=== PATIENT | female | born 1960 | race Caucasian/White ===

== ENCOUNTER 2018-09-25 15:37 | Inpatient (IN) | payer OTHER ==
[2018-09-25] MEDS ORDERED: MORPHINE SULFATE 4 MG/ML SYRINGE IVP STA ×3 (16:02→19:28)
[2018-09-25] MEDS ORDERED: ONDANSETRON 4 MG/2 ML VIAL IVP STA (16:05)
[2018-09-25] MEDS ORDERED: SODIUM CHLORIDE 0.9% 1,000 ML IV STA (16:05)
--- NOTE | 2018-09-25 16:05 | ED ---
General Adult HPI - General Chief complaint: Fall Stated complaint: Leg injury Time Seen by Provider: 09/25/18 15:42 Source: patient Mode of arrival: EMS Limitations: no limitations - History of Present Illness Initial comments: Dictation was produced using [employer] dictation software. please excuse any grammatical, word or spelling errors. Chief Complaint: 57-year-old female past medical history of hypertension and diabetes presents with right lower extremity injury History of Present Illness: Patient is a 57-year-old female. She has no significant comorbidities. 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 She then reported that she fell causing her to go to the ground. Patient tried to stand up however was not able to do so given that there was significant pain and deformity to the right lower extremity. EMS was called patient is transferred to the hospital. Prior to arrival patient was given fentanyl by EMS. She was placed in a EMS type immobilizer. The ROS documented in this emergency department record has been reviewed and confirmed by me. Those systems with pertinent positive or negative responses have been documented in the HPI. All other systems are other negative and/or noncontributory. PHYSICAL EXAM: General Impression: Alert and oriented x3, not in acute distress HEENT: Normocephalic atraumatic, extra-ocular movements intact, pupils equal and reactive to light bilaterally, mucous membranes moist. Cardiovascular: Heart regular rate and rhythm, S1&S2 audible, no murmurs, rubs or gallops Chest: Lungs clear to auscultation bilaterally, no rhonchi, no wheeze, no rales Abdomen: Bowel sounds present, abdomen soft, non-tender, non-distended, no organomegaly Musculoskeletal: Pulses present and equal in all extremities, no peripheral edema Right lower extremity: Gross deformity to the mid tibial area. Good DP pulses. Good motor function of the toes Motor: no focal deficits noted Neurological: CN II-XII grossly intact, no focal motor or sensory deficits noted Skin: Intact with no visualized rashes Psych: Normal affect and mood ED course: 57-year-old female presents with right lower extremity injury. Vital signs upon arrival shows heart rate of 59, worse vital signs within acceptable limits. Patient does have significant gross deformity to the right lower extremity. Tori x-ray was obtained. Right ankle appears uninjured. X-ray of the tibia and fibula shows comminuted fracture of the distal tibia, lateral malleolus and medial malleolus. Discussed patient case with Dr. Hand who requests CT imaging of that lower extremity. CTs were obtained showing comminuted displaced fracture distal diaphysis of the right tibia. There is also comminuted minimally displaced lateral malleolus fracture and nondisplaced transverse fracture of the medial malleolus. Patient was placed in a splint. Conscious sedation was used to reduce the fracture. Postreduction x-rays are acceptable. Patient be admitted to Dr. Hadn for likely operative intervention tomorrow. He requests internal medicine be consulted. Labs are unremarkable. Pending EKG chest x-ray for preoperative evaluation. - Related Data Home Medications Medication Instructions Recorded Confirmed Atorvastatin Calcium [Lipitor] 10 mg PO DAILY 09/25/18 09/25/18 Glimepiride [Amaryl] 2 mg PO AC-BID 09/25/18 09/25/18 Lisinopril-Hctz 20-25 mg 1 tab PO DAILY 09/25/18 09/25/18 [Zestoretic 20-25] Metoprolol Succinate (ER) [Toprol 25 mg PO DAILY 09/25/18 09/25/18 Xl] metFORMIN HCL [metFORMIN HCL ER] 750 mg PO AC-BID 09/25/18 09/25/18 Allergies Allergy/AdvReac Type Severity Reaction Status Date / Time No Known Allergies Allergy Unverified 09/25/18 17:04 Review of Systems ROS Statement: Those systems with pertinent positive or pertinent negative responses have been documented in the HPI. ROS Other: All systems not noted in ROS Statement are negative. Past Medical History Past Medical History: Diabetes Mellitus, Hyperlipidemia, Hypertension History of Any Multi-Drug Resistant Organisms: None Reported Past Surgical History: Tonsillectomy Past Psychological History: No Psychological Hx Reported Smoking Status: Former smoker Past Alcohol Use History: Occasional Past Drug Use History: None Reported General Exam Limitations: no limitations Course Vital Signs 09/25/18 09/25/18 09/25/18 15:42 17:50 19:10 Temperature 97.7 F Pulse Rate 59 L 61 65 Respiratory 18 18 21 Rate Blood Pressure 127/56 117/61 119/75 O2 Sat by Pulse 94 L 98 97 Oximetry 09/25/18 09/25/1819 19:15 19:20 19:25 Temperature Pulse Rate 72 66 75 Respiratory 15 18 12 Rate Blood Pressure 133/65 120/81 128/72 O2 Sat by Pulse 97 96 96 Oximetry 09/25/18 09/25/18 19:30 19:35 Temperature Pulse Rate 70 69 Respiratory 16 14 Rate Blood Pressure 147/76 130/65 O2 Sat by Pulse 97 96 Oximetry Medical Decision Making - Lab Data Result diagrams: 09/25/18 17:15 09/25/18 17:15 Lab Results 09/25/18 09/25/18 09/25/18 Range/Units 17:15 17:15 17:15 WBC 9.5 (3.8-10.6) k/uL RBC 4.32 (3.80-5.40) m/uL Hgb 13.0 (11.4-16.0) gm/dL Hct 39.2 (34.0-46.0) % MCV 90.6 (80.0-100.0) fL MCH 30.0 (25.0-35.0) pg MCHC 33.1 (31.0-37.0) g/dL RDW 13.0 (11.5-15.5) % Plt Count 182 (150-450) k/uL Neutrophils % 90 % Lymphocytes % 5 % Monocytes % 4 % Eosinophils % 1 % Basophils % 0 % Neutrophils # 8.5 H (1.3-7.7) k/uL Lymphocytes # 0.5 L (1.0-4.8) k/uL Monocytes # 0.4 (0-1.0) k/uL Eosinophils # 0.1 (0-0.7) k/uL Basophils # 0.0 (0-0.2) k/uL PT 10.0 (9.0-12.0) sec INR 0.9 (<1.2) Sodium 139 (137-145) mmol/L Potassium 4.1 (3.5-5.1) mmol/L Chloride 104 (98-107) mmol/L Carbon Dioxide 28 (22-30) mmol/L Anion Gap 7 mmol/L BUN 17 (7-17) mg/dL Creatinine 0.74 (0.52-1.04) mg/dL Est GFR (CKD-EPI)AfAm >90 (>60 ml/min/1.73 sqM) Est GFR (CKD-EPI)NonAf >90 (>60 ml/min/1.73 sqM) Glucose 166 H (74-99) mg/dL Calcium 9.4 (8.4-10.2) mg/dL Disposition Clinical Impression: Tibia fracture Disposition: ADMITTED IP TO THIS HOSP Condition: Fair Referrals: Shazia Souza MD [Primary Care Provider] - 1-2 days Decision Time: 19:49
--- NOTE | 2018-09-25 16:50 | XR ---
EXAMINATION TYPE: XR tibia fibula RT DATE OF EXAM: 09/25/2018 CLINICAL HISTORY: Fall injury today with pain. TECHNIQUE: Two views of the right leg are obtained. COMPARISON: None FINDINGS: There is acute comminuted displaced fracture through the distal diaphysis right femur with rectangular shaped roughly 8 cm lateral fracture component. Distal fracture fragment is slightly med ially and posteriorly displaced with anterior angulation. There is additional nondisplaced linear fra cture through the medial malleolus. There is acute comminuted minimally displaced fracture through th e distal fibula and lateral malleolus. Ankle mortise symmetry is preserved. No additional proximal f racture is seen. The overlying soft tissue appears unremarkable. IMPRESSION: There are acute comminuted fractures through the distal tibial diaphysis with displaceme nt and nondisplaced distal fibular diaphysis/lateral malleolus. Additional acute nondisplaced transve rse fracture through medial malleolus is present. (Initial encounter closed type posttraumatic fracture).
--- NOTE | 2018-09-25 16:51 | XR ---
EXAMINATION TYPE: XR foot limited RT DATE OF EXAM: 09/25/2018 CLINICAL HISTORY: Injury with pain. TECHNIQUE: Frontal and lateral images of the right foot are obtained. COMPARISON: None FINDINGS: There is no additional acute fracture/dislocation evident in the right foot. Some flexion of the toes is present. There is moderate size inferior calcaneal spur. Accessory ossicle near the pr oximal navicular and cuboid bones are present. Overlying soft tissue is unremarkable. IMPRESSION: There is no additional acute fracture or dislocation in the right foot.
[2018-09-25 17:39] LABS: Basophils % (A) 0 %; Eosinophils # (A) 0.1 k/uL (0-0.7); Eosinophils % (A) 1 %; HCT 39.2 % (34.0-46.0); Lymphocytes # (A) 0.5 k/uL (1.0-4.8); Lymphocytes % (A) 5 %; MCHC 33.1 g/dL (31.0-37.0); MCV 90.6 fL (80.0-100.0); Mean Platelet Volume 6.9; Monocytes # (A) 0.4 k/uL (0-1.0); Monocytes % (A) 4 %; Neutrophils # (A) 8.5 k/uL (1.3-7.7); Neutrophils % (A) 90 %; Platelet Count 182 k/uL (150-450); RBC 4.32 m/uL (3.80-5.40); WBC 9.5 k/uL (3.8-10.6)
[2018-09-25 17:47] LABS: Anion Gap 7 mmol/L; Blood Urea Nitrogen 17 mg/dL (7-17); Calcium 9.4 mg/dL (8.4-10.2); Carbon Dioxide 28 mmol/L (22-30); Chloride 104 mmol/L (98-107); Glucose 166 mg/dL (74-99); Potassium 4.1 mmol/L (3.5-5.1); Sodium 139 mmol/L (137-145)
[2018-09-25 18:10] LABS: INR 0.9 (<1.2)
--- NOTE | 2018-09-25 18:54 | CT ---
EXAMINATION TYPE: CT lower extremity RT wo con DATE OF EXAM: 09/25/2018 COMPARISON: Right leg x-ray earlier today. HISTORY: Fall today with fracture.. CT DLP: 169.5 mGycm Automated exposure control for dose reduction was used. FINDINGS: There is acute comminuted displaced fracture through distal diaphysis right femur. There is butterfly type fracture fragment with roughly 6.8 x 1.5 cm ossific fracture fragment along the lateral aspect. Additional smaller fracture fragments at this level are identified. Distal fracture fragment is roug hly 1.3 cm impacted with slight medial displacement. There is posterior and lateral angulation of dis luna fracture fragment. There is acute nondisplaced transverse fracture through the medial malleolus a t level of ankle mortise coronal image 35. There is acute minimally displaced comminuted fracture through the lateral malleolus extending into t he ankle mortise with few tiny ossific fracture fragments seen. Ankle mortise symmetry is preserved. Posterior malleolus is intact. There is moderate soft tissue swelling and hematoma over the medial and anterior aspect of the distal leg. IMPRESSION: COMMINUTED DISPLACED FRACTURE DISTAL DIAPHYSIS RIGHT TIBIA DETAILED ABOVE. COMMINUTED MINIMALLY DI SPLACED LATERAL MALLEOLUS FRACTURE AND NONDISPLACED TRANSVERSE FRACTURE MEDIAL MALLEOLUS ALL ARE REDE MONSTRATED.
[2018-09-25] MEDS ORDERED: PROPOFOL 10 MG/ML 20 ML VIAL IV ONE (19:13)
[2018-09-25] MEDS ORDERED: ONDANSETRON 4 MG/2 ML VIAL IVP PRN (19:49)
[2018-09-25] MEDS ORDERED: NALOXONE 0.4 MG/ML 1 ML VIAL IV PRN (19:49)
[2018-09-25] MEDS ORDERED: MORPHINE SULFATE 4 MG/ML SYRINGE IV PRN (19:49)
[2018-09-25] MEDS ORDERED: ACETAMINOPHEN TAB 325 MG TAB PO PRN (19:49)
--- NOTE | 2018-09-25 19:52 | XR ---
EXAMINATION TYPE: XR tibia fibula RT DATE OF EXAM: 09/25/2018 CLINICAL HISTORY: Post reduction right leg fracture. TECHNIQUE: Two views of the right leg are obtained. COMPARISON: Right leg x-ray and CT from earlier today.. FINDINGS: There is overlying splint or cast material present which is noted to lower radiographic se nsitivity. Comminuted fracture through distal tibial diaphysis shows improved alignment on frontal vi ew after reduction, fairly stable appearance on lateral view with slight impaction and anterior displ acement with posterior angulation of distal fracture fragment. There is more medial displacement of c omminuted fracture distal fibular diaphysis after reduction and casting. IMPRESSION: There is improved alignment of comminuted fracture distal tibial diaphysis after reducti on and casting.
[2018-09-25] MEDS: SODIUM CHLORIDE 0.9% 1,000 ML IV SCH (20:10)
--- NOTE | 2018-09-25 20:55 | XR ---
EXAMINATION TYPE: XR chest 1V portable DATE OF EXAM: 09/25/2018 CLINICAL HISTORY: Presurgical study. TECHNIQUE: Single AP portable upright view of the chest is obtained. COMPARISON: None FINDINGS: Overlying EKG leads are seen. Cardiac silhouette size is upper limits of normal. Lungs are grossly clear without pleural effusion or pneumothorax. Osseous structures are intact. IMPRESSION: No suspicious acute cardiopulmonary process.
[2018-09-25] MEDS: GLIMEPIRIDE 2 MG TAB PO SCH (22:56)
[2018-09-25] MEDS: metFORMIN 500 MG TAB PO SCH (22:57)
[2018-09-25 23:08] LABS: Glucose,Whole Blood 173 mg/dL (75-99)
[2018-09-26] MEDS: MORPHINE SULFATE 4 MG/ML SYRINGE IV PRN ×4 (01:10→20:22)
[2018-09-26] MEDS: SODIUM CHLORIDE 0.9% 1,000 ML IV SCH ×2 (06:52→17:26)
[2018-09-26] MEDS: LISINOPRIL-HCTZ 20-25 MG 1 EACH TAB PO SCH (07:32)
[2018-09-26] MEDS: ATORVASTATIN 10 MG TAB PO SCH (07:32)
[2018-09-26] MEDS: GLIMEPIRIDE 2 MG TAB PO SCH ×2 (07:32→20:33)
[2018-09-26] MEDS: METOPROLOL SUCCINATE (ER) 25 MG TAB.ER.24H PO SCH (07:33)
[2018-09-26] MEDS: metFORMIN 500 MG TAB PO SCH ×2 (07:33→20:33)
[2018-09-26] MEDS: PANTOPRAZOLE 40 MG/10 ML VIAL IV SCH (07:34)
--- NOTE | 2018-09-26 11:01 | P.HPOR ---
History of Present Illness H&P Date: 09/26/18 This patient is a 57 year old female with a past medical history of type 2 diabetes and hypertension that presented to the [facility] ED for evaluation of right leg pain. 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 She states immediate pain of the right lower extremity and noticed a deformity of the lower leg. EMS was called and she was transported to [facility] ED for further evaluation and treatment. Upon arrival to the ED, x-rays were taken and she was found to have a comminuted distal tibia diaphysis fracture, a nondisplaced distal fibular metaphysis fracture, and an additional transverse fracture through the medial malleolus. Computed tomography scan was performed, and closed reduction and splinting was performed in the ED. Patient was subsequently admitted to Dr. Hand for further surgical treatment. At the time of my examination, the patient states her pain is well-controlled. She states the splint that she is currently in is comfortable. She denies additional injuries or pain elsewhere in the body from her fall. Patient denies chest pain, shortness of breath, nausea, vomiting. Patient states her last he moglobin A1C was in the 7s. Patient has no other complaints at this time. Past Medical History Past Medical History: Diabetes Mellitus, Hyperlipidemia, Hypertension Additional Past Medical History / Comment(s): heart murmur History of Any Multi-Drug Resistant Organisms: None Reported Past Surgical History: Tonsillectomy Past Anesthesia/Blood Transfusion Reactions: No Reported Reaction Past Psychological History: No Psychological Hx Reported Smoking Status: Never smoker Past Drug Use History: None Reported - Past Family History Father Family Medical History: Diabetes Mellitus, Myocardial Infarction ([place]) Mother Family Medical History: Hypertension Medications and Allergies Home Medications Medication Instructions Recorded Confirmed Type Atorvastatin Calcium [Lipitor] 10 mg PO DAILY 09/25/18 09/25/18 History Glimepiride [Amaryl] 2 mg PO AC-BID 09/25/18 09/25/18 History Lisinopril-Hctz 20-25 mg 1 tab PO DAILY 09/25/18 09/25/18 History [Zestoretic 20-25] Metoprolol Succinate (ER) [Toprol 25 mg PO DAILY 09/25/18 09/25/18 History Xl] metFORMIN HCL [metFORMIN HCL ER] 750 mg PO AC-BID 09/25/18 09/25/18 History Allergies Allergy/AdvReac Type Severity Reaction Status Date / Time No Known Allergies Allergy Unverified 09/25/18 17:04 Physical Examination On examination, the patient is lying in bed in no apparent distress. The patient is alert and oriented 3. The patient's breathing appears nonlabored. Her head is atraumatic and normocephalic. On inspection of the right lower extremity, there is a plaster splint in place. Her toes are warm and well- perfused with brisk capillary refill. She is able to move her toes without issue. Sensation is intact to light touch of the toes. There is no pain on palpation of the right knee, left ankle or left knee. Results X-ray right tibia/fibula 09/25/18: Comminuted fracture through the distal tibia diaphysis with displacement, nondisplaced distal fibular diaphysis fracture. Additional nondisplaced transverse fracture through medial malleolus. Computed tomography scan right lower extremity 09/25/18: Acute comminuted displaced fracture of the distal diaphysis right tibia. Comminuted minimally displaced lateral malleolus fracture.Transverse fracture medial malleolus. - Labs Labs: Abnormal Lab Results - Last 24 Hours (Table) 09/25/18 09/25/18 09/25/18 Range/Units 17:15 17:15 20:27 Neutrophils # 8.5 H (1.3-7.7) k/uL Lymphocytes # 0.5 L (1.0-4.8) k/uL Glucose 166 H (74-99) mg/dL POC Glucose (mg/dL) 173 H (75-99) mg/dL H & H 09/25/18 Range/Units 17:15 Hgb 13.0 (11.4-16.0) gm/dL Hct 39.2 (34.0-46.0) % Coagulation 09/25/18 Range/Units 17:15 INR 0.9 (<1.2) Result Diagrams: 09/25/18 17:15 09/25/18 17:15 Assessment and Plan Assessment: Right comminuted displaced distal diaphysis right tibia fracture, comminuted minimally displaced lateral malleolus fracture, nondisplaced transverse fracture medial malleolus. Plan: - We will plan on a right tibial IM nail and a right ankle ORIF this afternoon with Dr. Hand, pending medical clearance and consent. - Strict non-weight bearing of the right lower extremity. Ice and elevate right hip for pain and swelling control. - Continue current pain management. - NPO diet. - Patient discussed with Dr. Hand.
[2018-09-26 13:53] LABS: Glucose,Whole Blood 137 mg/dL (75-99)
[2018-09-26] MEDS ORDERED: LACTATED RINGERS 1,000 ML IV ONE ×2 (13:54→19:24)
[2018-09-26] MEDS ORDERED: LIDOCAINE 1% 20 ML VIAL (10MG/ML) FOR IV START SQ ONE (14:00)
[2018-09-26] MEDS ORDERED: fentaNYL (PF) 50 MCG/ML 2 ML AMP IV ONE (14:16)
[2018-09-26] MEDS ORDERED: DEXAMETHASONE SOD PHOSPHATE 10 MG/ML 1 ML VIAL IV ONE (14:18)
[2018-09-26] MEDS ORDERED: ONDANSETRON 4 MG/2 ML VIAL IVP ONE (14:18)
[2018-09-26] MEDS ORDERED: hydrOXYzine PAMOATE 25 MG CAP PO PRN (16:37)
[2018-09-26] MEDS ORDERED: HYDROcodone/APAP 5-325MG 1 EACH TAB PO PRN ×2 (16:37)
[2018-09-26] MEDS ORDERED: LACTATED RINGERS 1,000 ML IV SCH (16:45)
[2018-09-26] MEDS ORDERED: SUCCINYLCHOLINE CHLORIDE 100 MG/5 ML SYR IV ONE (17:00)
[2018-09-26] MEDS ORDERED: LIDOCAINE 1% INJ 10MG/ML (20 ML MDV) ONE (17:00)
[2018-09-26] MEDS ORDERED: KETAMINE 10 MG/ML 20 ML VIAL ONE (17:00)
[2018-09-26] MEDS ORDERED: DEXAMETHASONE SOD PHOS (MDV) 100 MG/10 ML VIAL ONE (17:00)
[2018-09-26] MEDS ORDERED: MIDAZOLAM 2 MG/2 ML VIAL ONE (17:00)
[2018-09-26] MEDS ORDERED: PROPOFOL 10 MG/ML 20 ML VIAL IV ONE (17:00)
[2018-09-26] MEDS ORDERED: fentaNYL (PF) 50 MCG/ML 2 ML AMP ONE (17:00)
--- NOTE | 2018-09-26 21:42 | P.PN ---
Progress Note - Text Progress Note Date: 09/26/18 The patient was taken to the OR earlier [facility] for operative fixation of her distal tibia and ankle fractures. After the patient underwent general anesthesia, I was informed that the 8-mm flexible reamer had been broken yesterday and a replacement could not be found in our facility. The other ospital in [facility] had a reamer set, but it was in use. Prior to surgery I measure the isthmus to be between 7.5-[address] scan. I did not feel comfortable jumping from a 7.5 to 8.5 mm reamer for fear of incarcerating the reamer. At this point I cancelled the procedure. The patient had a new splint applied to her leg, was awoken from anesthesia and brought to the recovery room. I spoke with the patient's daughter, Marylu, about what had happened, taking full responsibility. Marylu understood, but requested transferring her Mom to a facility closer to home to have the procedure done. As the patient was wakening up from anesthesia, the majority of the family agreed and requested transfer to [facility]. After the patient awoke and became able to discuss with her family, she decided that she wanted to stay at our facility and have surgery tomorrow morning when a full set of reamers is available. The patient is going to be re-admitted to the floor and we will await the families final decision. If the patient and her family decide to stay at our facility, we will plan on returning to the OR tomorrow morning. If they decide they would like a transfer, we will do everything possible to accommodate their request.
[2018-09-26] MEDS: amLODIPine 10 MG TAB PO SCH (21:57)
--- NOTE | 2018-09-26 22:06 | P.CONS ---
History of Present Illness - Reason for Consult Consult date: 09/26/18 Medical management of hypertension, diabetes and medical clearance - Chief Complaint Right leg pain status post fall. - History of Present Illness Patient is a 57-year-old female with known history of hypertension, diabetes type 2 [id number], hyperlipidemia presented to ER with complaints of right leg pain status post fall. 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 Patient has been having right lower leg pain and deformity and unable to ambulate. Patient was brought to ER for evaluation. X-ray of the right tibia-fibula there is improvement in the alignment of comminuted fracture distal tibial diaphysis after reduction and casting. CT of the right lower extremities showed comminuted displaced fracture distal diaphoresis right tibia. Comminuted minimally displaced lateral malleolus fracture and nondisplaced transverse fracture medial malleolus all are pretty demonstrated. Chest x-ray showed no acute cardio pulmonary process EKG showed normal sinus rhythm Orthopedic surgery is planning for OR this afternoon. CBC 166. All other laboratory data reviewed. Review of Systems Constitutional: Patient denies any fever or chills . No generalized weakness or weight loss. Abdomen: Patient denied nausea vomiting and diarrhea and abdominal pain. Cardiovascular: Patient denies any chest pain or short of breath no palpitations. Respiratory: patient denied any cough is from production. No shortness of breath Neurologic: Patient denied any numbness or tingling headache. Musculoskeletal: Right leg pain and swelling. Currently immobilized.. Skin: Negative Psychiatric: Negative Endocrine: No heat or cold intolerance. No recent weight gain. Genitourinary: No dysuria or hematuria. All other 14 point ROS negative except the above Past Medical History Past Medical History: Diabetes Mellitus, Hyperlipidemia, Hypertension Additional Past Medical History / Comment(s): heart murmur History of Any Multi-Drug Resistant Organisms: None Reported Past Surgical History: Tonsillectomy Past Anesthesia/Blood Transfusion Reactions: No Reported Reaction Past Psychological History: No Psychological Hx Reported Smoking Status: Never smoker Past Drug Use History: None Reported - Past Family History Father Family Medical History: Diabetes Mellitus, Myocardial Infarction ([place]) Mother Family Medical History: Hypertension Medications and Allergies Home Medications Medication Instructions Recorded Confirmed Type Atorvastatin Calcium [Lipitor] 10 mg PO DAILY 09/25/18 09/25/18 History Glimepiride [Amaryl] 2 mg PO AC-BID 09/25/18 09/25/18 History Lisinopril-Hctz 20-25 mg 1 tab PO DAILY 09/25/18 09/25/18 History [Zestoretic 20-25] Metoprolol Succinate (ER) [Toprol 25 mg PO DAILY 09/25/18 09/25/18 History Xl] metFORMIN HCL [metFORMIN HCL ER] 750 mg PO AC-BID 09/25/18 09/25/18 History Allergies Allergy/AdvReac Type Severity Reaction Status Date / Time No Known Allergies Allergy Unverified 09/25/18 17:04 Physical Exam Vitals: Vital Signs Temp Pulse Pulse Resp BP BP Pulse Ox 09/26/18 07:30 97.7 F 67 18 122/68 96 09/26/18 04:15 98.1 F 60 18 131/73 95 09/25/18 23:00 135/73 09/25/18 22:30 97.9 F 60 18 135/73 95 09/25/18 20:55 97.9 F 78 18 105/77 98 09/25/18 20:12 70 18 105/77 98 09/25/18 19:35 69 14 130/65 96 09/25/18 19:30 70 16 147/76 97 09/25/18 19:25 75 12 128/72 96 09/25/18 19:20 66 18 120/81 96 09/25/18 19:15 72 15 133/65 97 09/25/18 19:10 65 21 119/75 97 09/25/18 17:50 61 18 117/61 98 09/25/18 15:42 97.7 F 59 L 18 127/56 94 L Intake and Output 09/25/18 09/26/18 09/26/18 22:59 06:59 14:59 Intake Total 300 Output Total 300 Balance 0 Intake: Oral 300 Output: Emesis 300 Other: Voiding Method Bedpan # Voids 1 Weight 90.718 kg PHYSICAL EXAMINATION: Patient is lying in the bed comfortably, no acute distress, awake alert and oriented.. HEENT: Normocephalic. Neck is supple. Pupils reactive. Nostrils clear. Oral cavity is moist. Ears reveal no drainage. Neck reveals no JVD, carotid bruits, or thyromegaly. CHEST EXAMINATION: Trachea is central. Symmetrical expansion. Lung escudero clear to auscultation and percussion. CARDIAC: Normal S1, S2 with no gallops. No murmurs ABDOMEN: Soft. Bowel sounds normal. No organomegaly. No abdominal bruits. Extremities: reveal no edema. No clubbing or cyanosis Neurologically awake, alert, oriented x3 with well-coordinated movements. No focal deficits noted Skin: No rash or skin lesions. Psychiatric: Coperative. Nonsuicidal Musculoskeletal: Right lower extremitie cast in place. Minimal swelling of dose.. Results CBC & Chem 7: 09/25/18 17:15 09/25/18 17:15 Labs: Abnormal Lab Results - Last 24 Hours (Table) 09/25/18 09/25/18 09/25/18 Range/Units 17:15 17:15 20:27 Neutrophils # 8.5 H (1.3-7.7) k/uL Lymphocytes # 0.5 L (1.0-4.8) k/uL Glucose 166 H (74-99) mg/dL POC Glucose (mg/dL) 173 H (75-99) mg/dL Assessment and Plan Assessment: Status post mechanical fall and right tibial fracture Right comminuted displaced distal diaphysis right tibia fracture, comminuted minimally displaced lateral malleolus fracture, nondisplaced transverse fracture medial malleolus. Diabetes type 2 [id number] Hypertension Hyperlipidemia DVT prophylaxis Plan: Patient is status post fall and right tibial fracture. Pain is currently controlled with medications. Otherwise patient denied any complaints of chest pain or shortness of breath. Blood sugar and blood pressure is well controlled. Denied any history of renal problems. Renal function is within normal limits. No history of cardiac problems and no history of stroke. Patient is low risk for moderate risk orthopedic surgery. We will continue to follow with you. Further recommendations based on the clinical course. Thank you for your consult. Time with Patient: Greater than 30
[2018-09-27] MEDS ORDERED: ceFAZolin IN SWFI 2 GM/20 ML SYRINGE IVP SCH
[2018-09-27] MEDS: MORPHINE SULFATE 4 MG/ML SYRINGE IV PRN ×2 (00:34→04:34)
[2018-09-27] MEDS: SODIUM CHLORIDE 0.9% 1,000 ML IV SCH ×3 (04:35→17:35)
[2018-09-27] MEDS: METOPROLOL SUCCINATE (ER) 25 MG TAB.ER.24H PO SCH (06:38)
[2018-09-27 07:37] LABS: Glucose,Whole Blood 134 mg/dL (75-99)
[2018-09-27] MEDS ORDERED: IV FLUID CONTINUATION 1,000 ML IV ONE (08:08)
[2018-09-27] MEDS ORDERED: fentaNYL (PF) 50 MCG/ML 2 ML AMP ONE (08:27)
[2018-09-27] MEDS ORDERED: GLYCOPYRROLATE 0.2 MG/ML 2 ML VIAL ONE (08:27)
[2018-09-27] MEDS ORDERED: NEOSTIGMINE 1 MG/ML 10 ML VIAL ONE (08:27)
[2018-09-27] MEDS ORDERED: PROPOFOL 10 MG/ML 20 ML VIAL IV ONE (08:27)
[2018-09-27] MEDS ORDERED: SUCCINYLCHOLINE CHLORIDE 100 MG/5 ML SYR IV ONE (08:27)
[2018-09-27] MEDS ORDERED: HYDROmorphone (PF) 1 MG/ML ONE (08:27)
[2018-09-27] MEDS ORDERED: ROCURONIUM BROMIDE 10 MG/ML 10 ML VIAL IV ONE (08:27)
[2018-09-27] MEDS ORDERED: fentaNYL (PF) 50 MCG/ML 2 ML AMP IV ONE (08:32)
[2018-09-27] MEDS ORDERED: MIDAZOLAM 2 MG/2 ML VIAL IV ONE (08:32)
[2018-09-27] MEDS ORDERED: ENOXAPARIN 40 MG/0.4 ML SYRINGE SQ SCH (09:00)
[2018-09-27] MEDS: amLODIPine 10 MG TAB PO SCH (10:45)
[2018-09-27] MEDS: metFORMIN 500 MG TAB PO SCH ×2 (10:45→17:34)
[2018-09-27] MEDS: GLIMEPIRIDE 2 MG TAB PO SCH ×2 (10:45→17:34)
[2018-09-27] MEDS: PANTOPRAZOLE 40 MG/10 ML VIAL IV SCH (10:46)
[2018-09-27] MEDS: LISINOPRIL-HCTZ 20-25 MG 1 EACH TAB PO SCH (10:46)
[2018-09-27] MEDS: ATORVASTATIN 10 MG TAB PO SCH (10:46)
[2018-09-27] MEDS ORDERED: HYDROmorphone 0.5 MG/0.5 ML SYRINGE IVP PRN (12:18)
--- NOTE | 2018-09-27 12:23 | XR ---
EXAMINATION TYPE: XR ankle and tibia-fibula limited RT DATE OF EXAM: 09/27/2018 COMPARISON: NONE HISTORY: Intraoperative views FINDINGS: 11 views are submitted. Postsurgical changes appear in near-anatomic alignment. IMPRESSION: 1. Postsurgical changes.
[2018-09-27] MEDS: LACTATED RINGERS 1,000 ML IV SCH ×2 (12:24→23:30)
--- NOTE | 2018-09-27 12:24 | FL ---
EXAMINATION TYPE: FL guidance operating room DATE OF EXAM: 09/27/2018 HISTORY: Flouroscopy time 3 minutes and one seconds of fluoroscopy provided. IMPRESSION: 1. Fluoroscopy time.
--- NOTE | 2018-09-27 12:25 | XR ---
EXAMINATION TYPE: XR tibia fibula RT DATE OF EXAM: 09/27/2018 COMPARISON: NONE HISTORY: Postop IMPRESSION: See ankle dictation
[2018-09-27] MEDS: HYDROmorphone 1 MG/ML 1 ML SYRINGE IVP ONE ×2 (12:56→13:01)
[2018-09-27] MEDS ORDERED: PROMETHAZINE INJ 25 MG/ML 1 ML VIAL IVPB ONE (13:11)
[2018-09-27] MEDS ORDERED: MEPERIDINE 50 MG/ML SYRINGE IVP ONE (13:13)
[2018-09-27] MEDS: HYDROcodone/APAP 5-325MG 1 EACH TAB PO PRN ×2 (15:11→21:40)
[2018-09-27] MEDS: ceFAZolin IN SWFI 2 GM/20 ML SYRINGE IVP SCH ×2 (15:13→23:30)
--- NOTE | 2018-09-27 15:45 | P.OP ---
Date of Procedure: 09/27/18 Preoperative Diagnosis: 1. Closed right comminuted distal third tibia fracture 2. Closed right comminuted distal fibula fracture 3. Minimally displaced right posterior malleolus fracture 4. Nondisplaced right medial malleolus fracture 5. Type 2 diabetes Postoperative Diagnosis: Same Procedure(s) Performed: 1. Operative fixation of right distal third tibia fracture with intramedullary nail 2. Open reduction and internal fixation right comminuted lateral malleolus fracture with bridge plate 3. Open reduction and internal fixation of right posterior malleolus 4. Nonoperative management of right medial malleolus fracture 5. Application of short-leg splint by physician, right ankle Anesthesia: LAYO Surgeon: Russell Hand Passenger Brakeman #1: Chintan Cavanaugh Estimated Blood Loss (ml): 100 IV fluids (ml): 1,500 Pathology: none sent Condition: stable Disposition: PACU Indications for Procedure: The patient is a very pleasant 57-year-old female with a medical history significant for type 2 diabetes who was involved in a work-related accident on Tuesday evening when she tripped over a [employer] area and she was brought to our emergency department where x-rays showed a comminuted distal third tibia and lateral malleolus fracture. A computed tomography scan was obtained further showing the tibia and lateral malleolus fractures but also identifying minimally displaced medial and posterior malleolus fractures. The patient was admitted under my care and cleared for surgery. She was brought to the operating room last night but unfortunately the reamer set was incomplete and the surgery had to be canceled. After long discussion the patient and her family decided to stay at our facility. I met with them to discuss treatment options. My recommendation was to fix the lateral malleolus, posterior malleolus and nail the tibia. We discussed the potential risks and complications of surgery including but not limited to risk of anesthesia, superficial infection, deep infection, delayed wound healing, superficial wound necrosis, deep wound necrosis, nonunion of the fracture sites, malunion the fracture site, malrotation of the tibia, DVT, PE, chronic pain, symptomatically hardware, and inability to regain preinjury level of function, need for further surgery, posttraumatic arthritis, generalized dissatisfaction with her surgical outcome, and possibly loss of life or limb. The patient and her family understand the severity of her fractures and the lengthy recovery. They also understand that she is a higher risk of having a complication due to her pre-existing type 2 diabetes. They provided their verbal and written consent to go forward with surgery. Description of Procedure: The patient was identified in preoperative holding and the correct right leg was marked with my initials. I reviewed the consent form with the patient and her daughter. All their questions were answered. The splint was gently taken down and the skin was found to be swollen but with some wrinkles. It appeared amenable to surgery. The patient was then brought back to the operating room. A general anesthetic was administered. The patient was positioned on the OR table. All bony prominences were well-padded. A tourniquet was applied to the proximal aspect of the right thigh. The left leg was secured to the table with foam. A bump was placed in the right buttock internally rotating the leg to neutral. A ramp was placed on the right leg to facilitate imaging. The right leg was then prepped and draped in the standard sterile fashion. Prior to starting surgery timeout was performed identifying the correct patient, operative extremity, and procedure. The patient's leg was then elevated, exsanguinated with an Esmarch bandage, and the tourniquet was inflated to 250 mmHg. I began by addressing the fibula fracture to pull the fibula out to length and indirectly reduce the tibia. A straight lateral incision was made to the skin and subcutissue with a scalpel. Dissection was carried down carefully to the subcutaneous tissue with tenotomy scissors. The superficial peroneal nerve was identified and carefully retracted anteriorly. The fascia over the peroneal muscles was incised proximally and the periosteum over the lateral malleolus was sharply excised. The fracture was immediately identified. There were several segmental pieces and a fair amount of comminution. Due to the amount of comminution and size of the butterfly fragments they did not appear amenable to lag screw fixation. The fibula was pulled out to length and pinned to the talus. Fluoroscopy was brought in to verify that the fibula was out to length and the mortise was reduced. I then placed a precontoured lateral distal fibular locking plate over the distal fibula. It was secured proximally to the fracture with a single nonlocking 3.5 mm screw. The screw was then centered distally and a nonlocking 2.7 mm screw was used to bring the plate down to bone. I then proceeded to fill the clusters distally with locking 2.7 mm screws. The nonlocking 2.7 mm screw was then exchanged for a locking 2.7 mm screw. I then proceeded to place an additional 2 nonlocking 3.5 mm screws proximal to the fracture. Fluoroscopy was brought in to verify the position of the hardware and reduction of the fracture. Using an 0 Vicryl stitch I placed several interrupted cerclage type sutures around the butterfly fragments to help reduce them. Attention was then turned to the posterior malleolus. One jamie of a large Pierre reduction clamp was slid posteriorly to the fibula and centered on the lateral aspect of the posterior malleolus. A small stab incision was made over the anterolateral aspect of the distal tibia. The second jamie of the Pierre reduction clamp was placed over the anterolateral aspect of the distal tibia and gently tightened. I then placed a cannulated 4.0 mm screw from anterior to posterior across the posterior malleolus taking care to place the screw distal and lateral so as to not interfere with the nail. Final fluoroscopic images were taken. All wounds were copiously irrigated and closed in layers with 0 Vicryl for the deep layer and fascia, 2-0 Vicryl for the skin, and 3-0 nylon Algor modification of the Donati stitch. The tourniquet was let down at this point of the procedure and was not reinflated. Attention was then turned to the tibia. A large radiolucent triangle was placed under the knee which was hyperflexed over the radiolucent triangle. C-arm fluoroscopy was brought in at this point to assess reduction of the tibia. By plating the fibula out to length there was an excellent reduction of the tibia fracture. A small midline incision was marked out at the inferior pole of the patella and extended distally 3 cm over the patellar tendon. Skin incision with a scalpel and dissection was carried down carefully to the subcutaneous tissue with tenotomy scissors. The peritenon was identified and sharply incised in line with the skin incision. I then certainly incised the patellar tendon and its midline. A guidepin was then placed on the anterior aspect of the proximal tibia. Fluoroscopy was brought in to verify position of the guidepin. On the AP view it was centered along the medial border of the lateral tibial spine and on the lateral view it was on the anterior crest of the tibia. The guidepin was then inserted into the metaphyseal flare. An opening reamer and soft tissue protector were then used to gain and transferred into the proximal tibia. A ball-tipped guidewire with a small bend at the distal tip was then inserted and brought down to the level of the fracture. The fracture was held reduced by an post production assistant and the guidepin was then advanced down to the level of the physis he'll scar centered on both the AP and lateral plane. The guidepin was measured to be 345 mm. I then sequentially reamed in half millimeter increments beginning with a 7-1/2 mm reamer. Chatter occurred with the 9 mm reamer. I r eamed up to 10 mm and elected to use a 345 mm x 9 mm nail. The nail was dispensed and hooked up to the targeting arm. I verified that the trochars lined up with their corresponding slots in the proximal aspect of the nail. The nail was then gently inserted over the guidepin and brought down to the level of the fracture. Under image guidance the nail was fully seated the level of the physeal scar. The proximal extent of the nail was found to be recessed below the level of the proximal tibia. I then placed 2 locking screws proximally in the nail from medial to lateral both in the static slots of the nail. Attention was then turned distally where 3 interlocking screws were placed using the perfect circlefreehand technique. At this point final fluoroscopic images were taken after the targeting arm had been removed. All of the interlocking screws were within the nail. The tibia fracture appeared to be nicely reduced. The ankle mortise was intact. The wounds were then copiously irrigated and closed in layers. A sterile dressing consisting of Betadine soaked Adaptic, 4 x 4, and web roll was applied. A well-padded bulky Hawkins splint was placed with the ankle at neutral. The patient was awoken from her anesthetic and transferred to a gurney, and brought to PACU without procedure well. Chintan Cavanaugh PA-C was required as a skilled post production assistant for patient positioning, surgical exposure, retraction, reduction of fracture and placement of hardware, closure of wounds, and application of splint. Plan: The patient is going to be admitted for 2 doses of IV antibiotics and pain control. She is to remain strictly nonweightbearing on her operative extremity. I encouraged aggressive ice and elevation to help with resolution of swelling and pain control. She can discharge home when she passes physical therapy and her pain is controlled with oral medications. She will need follow-up in the office in 2 weeks for splint removal and nonweightbearing x-rays of the tibia and ankle.
[2018-09-27 15:49] LABS: Basophils % (A) 0 %; Eosinophils % (A) 0 %; HCT 33.1 % (34.0-46.0); HGB 10.9 gm/dL (11.4-16.0); Lymphocytes # (A) 0.5 k/uL (1.0-4.8); Lymphocytes % (A) 3 %; MCV 90.7 fL (80.0-100.0); Mean Platelet Volume 7.4; Monocytes # (A) 0.7 k/uL (0-1.0); Monocytes % (A) 5 %; Neutrophils # (A) 12.6 k/uL (1.3-7.7); Neutrophils % (A) 90 %; Platelet Count 187 k/uL (150-450); RBC 3.65 m/uL (3.80-5.40); RDW 13.4 % (11.5-15.5)
[2018-09-27 16:33] LABS: Glucose,Whole Blood 136 mg/dL (75-99)
[2018-09-27] MEDS: HYDROmorphone 0.5 MG/0.5 ML SYRINGE IVP PRN (18:03)
--- NOTE | 2018-09-27 20:05 | P.PN ---
Subjective Progress Note Date: 09/27/18 The patient is doing well and is not having pain in her right leg. She has some mild discomfort in the knee. She has no other complaints. Objective - Vital Signs Vital signs: Vital Signs Temp 99.0 F 09/27/18 19:15 Pulse 77 09/27/18 19:15 Resp 16 09/27/18 19:15 BP 105/52 09/27/18 19:15 Pulse Ox 95 09/27/18 19:15 Intake & Output 09/27/18 09/27/18 09/28/18 06:59 18:59 06:59 Intake Total 900 1600 Output Total 100 Balance 900 1500 Intake: IV 1600 Sodium Chloride 0.9% 1, 200 000 ml @ 100 mls/hr IV . Q10H SUKHDEEP Rx#:[id number] Intake, IV Titration 900 Amount Lactated Ringers 1,000 ml 900 @ 100 mls/hr IV .Q10H SUKHDEEP Rx#:[id number] Output: Estimated Blood Loss 100 Other: # Voids 1 1 - Exam The patient is alert and oriented and easily able to answer questions. She is in no acute distress and appears comfortable. A focused examination of the right leg was conducted. On inspection there is a clean-appearing bulky Hawkins splint. There is no drainage or bleeding through the splint. There is a small amount of dried blood over the anterior aspect of the knee through the dressing. The patient's toes are warm and well perfused with brisk capillary refill. There is no pain with passive range of motion of the toes - Labs CBC & Chem 7: 09/27/18 15:05 09/25/18 17:15 Labs: Abnormal Lab Results - Last 24 Hours (Table) 09/27/18 09/27/18 09/27/18 Range/Units 07:26 15:05 16:21 WBC 14.0 H (3.8-10.6) k/uL RBC 3.65 L (3.80-5.40) m/uL Hgb 10.9 L (11.4-16.0) gm/dL Hct 33.1 L (34.0-46.0) % Neutrophils # 12.6 H (1.3-7.7) k/uL Lymphocytes # 0.5 L (1.0-4.8) k/uL POC Glucose (mg/dL) 134 H 136 H (75-99) mg/dL Assessment and Plan Plan: Postop day #0 status post right tibial intramedullary nail and open reduction internal fixation of right ankle. Doing well. 1. 2 doses postoperative antibiotics 2. DVT prophylaxis with Lovenox while in the hospital and home on aspirin 3. Strict nonweightbearing right leg 4. Internal medicine for diabetes management and perioperative medical assistance 5. Physical therapy for gait training 6. Vitamin D level pending 7. The patient can discharge home when her pain is controlled with oral pain medication, she is medically stable, and passes physical therapy
[2018-09-27 21:01] LABS: Glucose,Whole Blood 144 mg/dL (75-99)
[2018-09-27] MEDS: hydrOXYzine PAMOATE 25 MG CAP PO PRN (21:40)
--- NOTE | 2018-09-27 22:40 | P.PN ---
Subjective Progress Note Date: 09/27/18 Principal diagnosis: Status post mechanical fall and right tibial fracture Right comminuted displaced distal diaphysis right tibia fracture, comminuted minimally displaced lateral malleolus fracture, nondisplaced transverse fracture medial malleolus. Patient is a 57-year-old female with known history of hypertension, diabetes type 2 [id number], hyperlipidemia presented to ER with complaints of right leg pain status post fall. 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 Patient has been having right lower leg pain and deformity and unable to ambulate. Patient was brought to ER for evaluation. X-ray of the right tibia-fibula there is improvement in the alignment of comminuted fracture distal tibial diaphysis after reduction and casting. CT of the right lower extremities showed comminuted displaced fracture distal diaphoresis right tibia. Comminuted minimally displaced lateral malleolus fracture and nondisplaced transverse fracture medial malleolus all are pretty demonstrated. Chest x-ray showed no acute cardio pulmonary process EKG showed normal sinus rhythm Orthopedic surgery is planning for OR this afternoon. CBC 166. All other laboratory data reviewed. 09/27/2018 Patient underwent intramedullary nailing of right DVT or fracture and ORIF of right ankle malleolus fracture. Tolerated the procedure very well. Currently patient is controlled. No complaints of chest pain or shortness of breath. Slightly elevated blood pressure postoperatively. Currently controlled. Kalyan back does have some nausea. No vomiting. No abdominal pain or diarrhea. No fever no chills.. Procedure(s) Performed: 1. Operative fixation of right distal third tibia fracture with intramedullary nail 2. Open reduction and internal fixation right comminuted lateral malleolus fracture with bridge plate 3. Open reduction and internal fixation of right posterior malleolus 4. Nonoperative management of right medial malleolus fracture 5. Application of short-leg splint by physician, right ankle. Current medications reviewed. Objective - Vital Signs Vital signs: Vital Signs Temp 99.0 F 09/27/18 19:15 Pulse 77 09/27/18 19:15 Resp 16 09/27/18 19:15 BP 105/52 09/27/18 19:15 Pulse Ox 95 09/27/18 19:15 Intake & Output 09/27/18 09/27/18 09/28/18 06:59 18:59 06:59 Intake Total 900 1600 Output Total 100 Balance 900 1500 Intake: IV 1600 Sodium Chloride 0.9% 1, 200 000 ml @ 100 mls/hr IV . Q10H SUKHDEEP Rx#:[id number] Intake, IV Titration 900 Amount Lactated Ringers 1,000 ml 900 @ 100 mls/hr IV .Q10H SUKHDEEP Rx#:[id number] Output: Estimated Blood Loss 100 Other: # Voids 1 1 - Exam PHYSICAL EXAMINATION: Patient is lying in the bed comfortably, no acute distress, awake alert and oriented.. HEENT: Normocephalic. Neck is supple. Pupils reactive. Nostrils clear. Oral cavity is moist. Ears reveal no drainage. Neck reveals no JVD, carotid bruits, or thyromegaly. CHEST EXAMINATION: Trachea is central. Symmetrical expansion. Lung escudero clear to auscultation and percussion. CARDIAC: Normal S1, S2 with no gallops. No murmurs ABDOMEN: Soft. Bowel sounds normal. No organomegaly. No abdominal bruits. Extremities: reveal no edema. No clubbing or cyanosis Neurologically awake, alert, oriented x3 with well-coordinated movements. No f ocal deficits noted Skin: No rash or skin lesions. Psychiatric: Coperative. Nonsuicidal Musculoskeletal: Right lower extremitie cast in place. Minimal swelling of dose.. - Labs CBC & Chem 7: 09/27/18 15:05 09/25/18 17:15 Labs: Abnormal Lab Results - Last 24 Hours (Table) 09/27/18 09/27/18 09/27/18 Range/Units 07:26 15:05 16:21 WBC 14.0 H (3.8-10.6) k/uL RBC 3.65 L (3.80-5.40) m/uL Hgb 10.9 L (11.4-16.0) gm/dL Hct 33.1 L (34.0-46.0) % Neutrophils # 12.6 H (1.3-7.7) k/uL Lymphocytes # 0.5 L (1.0-4.8) k/uL POC Glucose (mg/dL) 134 H 136 H (75-99) mg/dL 09/27/18 Range/Units 20:50 WBC (3.8-10.6) k/uL RBC (3.80-5.40) m/uL Hgb (11.4-16.0) gm/dL Hct (34.0-46.0) % Neutrophils # (1.3-7.7) k/uL Lymphocytes # (1.0-4.8) k/uL POC Glucose (mg/dL) 144 H (75-99) mg/dL Assessment and Plan Assessment: Right tibial intramedullary nailing and ORIF of ankle/malleolus fracture. Postoperative day 0 Status post mechanical fall Right comminuted displaced distal diaphysis right tibia fracture, comminuted minimally displaced lateral malleolus fracture, nondisplaced transverse fracture medial malleolus. Diabetes type 2 [id number] Hypertension Hyperlipidemia DVT prophylaxis Plan: Patient will be continued on current pain medications and a bowel regimen. Incentive spirometry and DVT prophylaxis. Patient be continued on current blood pressure medications including Norvasc and lisinopril. Insulin sliding scale and diabetic medications. We will continue to follow closely. Further recommendations based on the clinical course. Time with Patient: Greater than 30
[2018-09-27] MEDS: HYDROmorphone 1 MG/ML 1 ML SYRINGE IVP PRN (23:26)
[2018-09-28] MEDS: hydrOXYzine PAMOATE 25 MG CAP PO PRN ×2 (04:36→11:26)
[2018-09-28] MEDS: HYDROcodone/APAP 5-325MG 1 EACH TAB PO PRN ×2 (04:37→17:14)
[2018-09-28 07:38] LABS: Glucose,Whole Blood 157 mg/dL (75-99)
[2018-09-28 08:28] LABS: Basophils % (A) 0 %; Eosinophils # (A) 0.1 k/uL (0-0.7); Eosinophils % (A) 2 %; HCT 29.4 % (34.0-46.0); HGB 10.1 gm/dL (11.4-16.0); Lymphocytes # (A) 0.6 k/uL (1.0-4.8); Lymphocytes % (A) 9 %; MCH 30.8 pg (25.0-35.0); MCHC 34.3 g/dL (31.0-37.0); MCV 89.6 fL (80.0-100.0); Mean Platelet Volume 7.4; Monocytes # (A) 0.6 k/uL (0-1.0); Monocytes % (A) 8 %; Neutrophils # (A) 5.8 k/uL (1.3-7.7); Neutrophils % (A) 80 %; Platelet Count 148 k/uL (150-450); RBC 3.28 m/uL (3.80-5.40); RDW 13.6 % (11.5-15.5); WBC 7.2 k/uL (3.8-10.6)
[2018-09-28] MEDS: HYDROmorphone 0.5 MG/0.5 ML SYRINGE IVP PRN ×2 (08:32→20:28)
[2018-09-28] MEDS: amLODIPine 10 MG TAB PO SCH (08:33)
[2018-09-28] MEDS: metFORMIN 500 MG TAB PO SCH ×2 (08:34→17:32)
[2018-09-28] MEDS: METOPROLOL SUCCINATE (ER) 25 MG TAB.ER.24H PO SCH (08:34)
[2018-09-28] MEDS: GLIMEPIRIDE 2 MG TAB PO SCH ×2 (08:35→17:33)
[2018-09-28] MEDS: ENOXAPARIN 40 MG/0.4 ML SYRINGE SQ SCH (08:35)
[2018-09-28] MEDS: ATORVASTATIN 10 MG TAB PO SCH (08:35)
[2018-09-28] MEDS: PANTOPRAZOLE 40 MG/10 ML VIAL IV SCH (08:36)
[2018-09-28] MEDS: LACTATED RINGERS 1,000 ML IV SCH (08:43)
[2018-09-28] MEDS: SODIUM CHLORIDE 0.9% 1,000 ML IV SCH ×2 (08:43→17:37)
[2018-09-28 08:53] LABS: Anion Gap 5 mmol/L; Blood Urea Nitrogen 14 mg/dL (7-17); Calcium 8.2 mg/dL (8.4-10.2); Carbon Dioxide 25 mmol/L (22-30); Chloride 109 mmol/L (98-107); Glucose 142 mg/dL (74-99); Potassium 4.1 mmol/L (3.5-5.1); Sodium 139 mmol/L (137-145)
[2018-09-28] MEDS: LISINOPRIL-HCTZ 20-25 MG 1 EACH TAB PO SCH (08:57)
[2018-09-28 12:00] LABS: Glucose,Whole Blood 165 mg/dL (75-99)
[2018-09-28] MEDS: HYDROmorphone 1 MG/ML 1 ML SYRINGE IVP PRN (12:43)
--- NOTE | 2018-09-28 12:59 | P.PN ---
Subjective Progress Note Date: 09/28/18 This patient is a 57 year old female with a past medical history of type 2 diabetes and hypertension that presented to the [facility] ED for evaluation of right leg pain. 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 She states immediate pain of the right lower extremity and noticed a deformity of the lower leg. EMS was called and she was transported to [facility] ED for further evaluation and treatment. Upon arrival to the ED, x-rays were taken and she was found to have a comminuted distal tibia diaphysis fracture, a nondisplaced distal fibular metaphysis fracture, and an additional transverse fracture through the medial malleolus. Computed tomography scan was performed, and closed reduction and splinting was performed in the ED. Patient was subsequently admitted to Dr. Hand for further surgical treatment. Patient underwent operative fixation of right distal third tibia fracture with intramedullary nail, open reduction and internal fixation right comminuted lateral malleolus fracture with bridge plate, open reduction and internal fixation of right posterior malleolus with nonoperative management of right medial malleolus fracture with Dr. Hand on 09/27/18. Today is post-operative day #1. The patient states she overall feels well today. She is experiencing mild pain in the right leg, although her pain is manageable. She has been up with therapy today with no issues transferring, she is remaining non-weight bearing on the operative leg. She denies chest pain, shortness of breath, nausea, vomiting. She has no new complaints today. Vital signs stable. Objective - Vital Signs Vital signs: Vital Signs Temp 98.5 F 09/28/18 07:19 Pulse 80 09/28/18 07:19 Resp 14 09/28/18 07:19 BP 146/66 09/28/18 07:19 Pulse Ox 96 09/28/18 07:19 Intake & Output 09/27/18 09/28/18 09/28/18 18:59 06:59 18:59 Intake Total 1600 1780 Output Total 100 Balance 1500 1780 Intake: IV 1600 1000 Sodium Chloride 0.9% 1, 200 1000 000 ml @ 100 mls/hr IV . Q10H SUKHDEEP Rx#:[id number] Oral 780 Output: Estimated Blood Loss 100 Other: Voiding Method Bedpan # Voids 1 2 - Exam On examination, the patient is sitting up in the chair in no apparent distress, she appears comfortable. The patient is alert and oriented x3. On inspection of the right lower extremity, a bulky Hawkins splint is in place. The splint is clean, dry, intact. There is no drainage or bleeding through the splint. There is a small amount of dried blood over the anterior aspect of the knee through the dressing. The patient's toes are warm and well perfused with brisk capillary refill. There is no pain with movement of the toes. Sensation is intact to light touch of the toes. Left calf is soft and nontender to palpation. - Labs CBC & Chem 7: 09/28/18 07:49 09/28/18 07:49 Labs: Abnormal Lab Results - Last 24 Hours (Table) 09/27/18 09/27/18 09/27/18 Range/Units 15:05 16:21 20:50 WBC 14.0 H (3.8-10.6) k/uL RBC 3.65 L (3.80-5.40) m/uL Hgb 10.9 L (11.4-16.0) gm/dL Hct 33.1 L (34.0-46.0) % Plt Count (150-450) k/uL Neutrophils # 12.6 H (1.3-7.7) k/uL Lymphocytes # 0.5 L (1.0-4.8) k/uL Chloride (98-107) mmol/L Glucose (74-99) mg/dL POC Glucose (mg/dL) 136 H 144 H (75-99) mg/dL Calcium (8.4-10.2) mg/dL 09/28/18 09/28/18 09/28/18 Range/Units 07:19 07:49 07:49 WBC (3.8-10.6) k/uL RBC 3.28 L (3.80-5.40) m/uL Hgb 10.1 L (11.4-16.0) gm/dL Hct 29.4 L (34.0-46.0) % Plt Count 148 L (150-450) k/uL Neutrophils # (1.3-7.7) k/uL Lymphocytes # 0.6 L (1.0-4.8) k/uL Chloride 109 H (98-107) mmol/L Glucose 142 H (74-99) mg/dL POC Glucose (mg/dL) 157 H (75-99) mg/dL Calcium 8.2 L (8.4-10.2) mg/dL 09/28/18 Range/Units 11:49 WBC (3.8-10.6) k/uL RBC (3.80-5.40) m/uL Hgb (11.4-16.0) gm/dL Hct (34.0-46.0) % Plt Count (150-450) k/uL Neutrophils # (1.3-7.7) k/uL Lymphocytes # (1.0-4.8) k/uL Chloride (98-107) mmol/L Glucose (74-99) mg/dL POC Glucose (mg/dL) 165 H (75-99) mg/dL Calcium (8.4-10.2) mg/dL Assessment and Plan Assessment: Postop day #1 status post right tibial intramedullary nail and open reduction internal fixation of right ankle. Plan: - Patient is to remain strictly non-weight bearing on operative leg. Continue PT for balance and gait training. Keep splint intact. - Ice and elevation of the right leg for swelling and pain control. - Continue with current pain medications. - 2 doses of post-operative antibiotics complete. - Lovenox for DVT prophylaxis while inpatient, aspirin on discharge. - Appreciate internal medicine for medical management. - Anticipate discharge home vs. rehab facility within the next 24-48 hours. - Patient discussed with Dr. Hand.
[2018-09-28 16:42] LABS: Glucose,Whole Blood 190 mg/dL (75-99)
[2018-09-28 20:20] LABS: Glucose,Whole Blood 167 mg/dL (75-99)
[2018-09-29] MEDS: SODIUM CHLORIDE 0.9% 1,000 ML IV SCH ×2 (05:20→12:48)
[2018-09-29 07:10] LABS: Glucose,Whole Blood 149 mg/dL (75-99)
[2018-09-29] MEDS: GLIMEPIRIDE 2 MG TAB PO SCH ×2 (07:42→17:29)
[2018-09-29] MEDS: metFORMIN 500 MG TAB PO SCH ×2 (07:42→17:29)
[2018-09-29] MEDS: HYDROcodone/APAP 5-325MG 1 EACH TAB PO PRN ×3 (07:51→21:06)
--- NOTE | 2018-09-29 08:49 | P.DS ---
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 Patient was initially seen in the [facility] ED. Patient was admitted under the care of Dr. Hand, and cleared for surgery. She was initially brought to the operating room on 09/26/18, but unfortunately the reamer set that was needed for surgery was incomplete and the surgery had to be ca nceled. After a long discussion with the patient and the family, the patient decided to stay at our facility and undergo surgery next day. Patient underwent an operative fixation of the right distal third right tibia fracture with an intramedullary nail, and ORIF of right comminuted lateral malleolus fracture with a bridge plate, an open reduction and internal fixation of the right posterior malleolus, and nonoperative management of the right medial malleolus fracture on 09/27/[address] Hand. The procedure is performed without complication or sequelae. The patient is doing well postoperatively. Vital signs are stable on postop day #2. The patient is examined bedside this morning. She states her pain is currently well-controlled. She states she has been working with physical therapy, and feels comfortable with her transfers. She states she has been remaining nonweightbearing on the right lower extremity. Patient states he is tolerating her diet well. Patient denies chest pain, shortness of breath, nausea, vomiting, fevers, or chills. Patient has no new complaints today. Vital signs stable. On examination, the patient is sitting up in bed in no acute distress. Patient is alert and orientated x3. On inspection of the right lower extremity, there is a bulky Hawkins splint in place. Splint is clean, dry, intact. There is no bleeding or drainage through the splint. Patient is able to wiggle right toes without issue. The toes are warm and well-perfused with brisk capillary refill. Sensation is intact to light touch of the dorsal and plantar foot, as well as f irst dorsal webspace. The left calf is soft and non-tender to palpation. The patient is discharged to rehab, pending medical clearance today. Please refer to the [facility] for accurate list of medications. Patient Condition at Discharge: Fair Plan - Discharge Summary New Discharge Prescriptions: New Aspirin 325 mg PO DAILY #14 tab Docusate [Colace] 100 mg PO BID #60 capsule Hydrocodone/Acetaminophen [Clark 5-325] 1 tab PO Q6HR PRN #40 tab PRN Reason: Pain Cholecalciferol [Vitamin D3] 2,000 unit PO DAILY #30 tablet Calcium Carbonate 500 mg PO TID #90 tablet No Action Metoprolol Succinate (ER) [Toprol Xl] 25 mg PO DAILY Lisinopril-Hctz 20-25 mg [Zestoretic 20-25] 1 tab PO DAILY Glimepiride [Amaryl] 2 mg PO AC-BID Atorvastatin Calcium [Lipitor] 10 mg PO DAILY metFORMIN HCL [metFORMIN HCL ER] 750 mg PO AC-BID Discharge Medication List Atorvastatin Calcium [Lipitor] 10 mg PO DAILY 09/25/18 [History] Glimepiride [Amaryl] 2 mg PO AC-BID 09/25/18 [History] Lisinopril-Hctz 20-25 mg [Zestoretic 20-25] 1 tab PO DAILY 09/25/18 [History] Metoprolol Succinate (ER) [Toprol Xl] 25 mg PO DAILY 09/25/18 [History] metFORMIN HCL [metFORMIN HCL ER] 750 mg PO AC-BID 09/25/18 [History] Aspirin 325 mg PO DAILY #14 tab 09/29/18 [Rx] Calcium Carbonate 500 mg PO TID #90 tablet 09/29/18 [Rx] Cholecalciferol [Vitamin D3] 2,000 unit PO DAILY #30 tablet 09/29/18 [Rx] Docusate [Colace] 100 mg PO BID #60 capsule 09/29/18 [Rx] Hydrocodone/Acetaminophen [Clark 5-325] 1 tab PO Q6HR PRN #40 tab 09/29/18 [Rx] Follow up Appointment(s)/Referral(s): Shazia Souza MD [Primary Care Provider] - 1-2 days Russell Hand MD [Medical Doctor] - 10/13/18 10:15 am Activity/Diet/Wound Care/Special Instructions: -Strict non-weight bearing on your operative leg. Do not remove your splint; Keep splint clean, dry, and intact -Use crutches, knee scooter, or a walker to ambulate after surgery. -Elevate and ice operative leg to help reduce swelling and control pain. -Take pain medications as prescribed. Take Colace as a stool softener. Take aspirin as prescribed for blood clot prevention. - Vitamin D level resulted at 20.9. The patient was given a prescription for vitamin D3 2000 units daily, and calcium carbonate 500 mg 3 times a day. -Follow-up appointment with Dr. Hand in the office in 2 weeks. -Call the office with any questions or concerns, Discharge Disposition: TRANSFER TO SNF/ECF
[2018-09-29] MEDS: PANTOPRAZOLE 40 MG/10 ML VIAL IV SCH (08:52)
[2018-09-29] MEDS: METOPROLOL SUCCINATE (ER) 25 MG TAB.ER.24H PO SCH (08:55)
[2018-09-29] MEDS: ATORVASTATIN 10 MG TAB PO SCH (08:55)
[2018-09-29] MEDS: ENOXAPARIN 40 MG/0.4 ML SYRINGE SQ SCH (08:55)
[2018-09-29] MEDS: LISINOPRIL-HCTZ 20-25 MG 1 EACH TAB PO SCH (08:55)
[2018-09-29] MEDS: amLODIPine 10 MG TAB PO SCH (08:55)
[2018-09-29 11:41] LABS: Glucose,Whole Blood 131 mg/dL (75-99)
[2018-09-29 16:27] LABS: Glucose,Whole Blood 181 mg/dL (75-99)
[2018-09-29 20:36] LABS: Glucose,Whole Blood 176 mg/dL (75-99)
[2018-09-30] MEDS: SODIUM CHLORIDE 0.9% 1,000 ML IV SCH ×3 (02:00→23:48)
[2018-09-30 07:14] LABS: Glucose,Whole Blood 117 mg/dL (75-99)
[2018-09-30] MEDS: metFORMIN 500 MG TAB PO SCH ×2 (07:19→17:00)
[2018-09-30] MEDS: METOPROLOL SUCCINATE (ER) 25 MG TAB.ER.24H PO SCH (07:19)
[2018-09-30] MEDS: amLODIPine 10 MG TAB PO SCH (07:19)
[2018-09-30] MEDS: GLIMEPIRIDE 2 MG TAB PO SCH ×2 (07:19→17:00)
[2018-09-30] MEDS: ATORVASTATIN 10 MG TAB PO SCH (07:19)
[2018-09-30] MEDS: HYDROcodone/APAP 5-325MG 1 EACH TAB PO PRN ×3 (07:20→18:43)
[2018-09-30] MEDS: ENOXAPARIN 40 MG/0.4 ML SYRINGE SQ SCH (07:20)
[2018-09-30] MEDS: PANTOPRAZOLE 40 MG/10 ML VIAL IV SCH (07:20)
[2018-09-30] MEDS: LISINOPRIL-HCTZ 20-25 MG 1 EACH TAB PO SCH (07:20)
[2018-09-30 12:13] LABS: Glucose,Whole Blood 127 mg/dL (75-99)
[2018-09-30 17:16] LABS: Glucose,Whole Blood 165 mg/dL (75-99)
[2018-09-30 19:56] LABS: Glucose,Whole Blood 134 mg/dL (75-99)
--- NOTE | 2018-09-30 23:34 | P.PN ---
Subjective Progress Note Date: 09/30/18 Principal diagnosis: Status post mechanical fall and right tibial fracture Right comminuted displaced distal diaphysis right tibia fracture, comminuted minimally displaced lateral malleolus fracture, nondisplaced transverse fracture medial malleolus. Patient is a 57-year-old female with known history of hypertension, diabetes type 2 [id number], hyperlipidemia presented to ER with complaints of right leg pain status post fall. 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 Patient has been having right lower leg pain and deformity and unable to ambulate. Patient was brought to ER for evaluation. X-ray of the right tibia-fibula there is improvement in the alignment of comminuted fracture distal tibial diaphysis after reduction and casting. CT of the right lower extremities showed comminuted displaced fracture distal diaphoresis right tibia. Comminuted minimally displaced lateral malleolus fracture and nondisplaced transverse fracture medial malleolus all are pretty demonstrated. Chest x-ray showed no acute cardio pulmonary process EKG showed normal sinus rhythm Orthopedic surgery is planning for OR this afternoon. CBC 166. All other laboratory data reviewed. 09/27/2018 Patient underwent intramedullary nailing of right DVT or fracture and ORIF of right ankle malleolus fracture. Tolerated the procedure very well. Currently patient is controlled. No complaints of chest pain or shortness of breath. Slightly elevated blood pressure postoperatively. Currently controlled. Pa wong does have some nausea. No vomiting. No abdominal pain or diarrhea. No fever no chills.. Procedure(s) Performed: 1. Operative fixation of right distal third tibia fracture with intramedullary nail 2. Open reduction and internal fixation right comminuted lateral malleolus fracture with bridge plate 3. Open reduction and internal fixation of right posterior malleolus 4. Nonoperative management of right medial malleolus fracture 5. Application of short-leg splint by physician, right ankle. 09/30/2018 Patient denied any complaints of right leg pain. Patient did have bowel movement yesterday. No nausea vomiting or abdominal pain. No chest pain. Blood pressure and blood sugar is currently controlled. No other acute overnight issues. Current medications reviewed. Objective - Vital Signs Vital signs: Vital Signs Temp 98.9 F 09/30/18 20:30 Pulse 95 09/30/18 20:30 Resp 16 09/30/18 20:30 BP 122/67 09/30/18 20:30 Pulse Ox 95 09/30/18 15:31 Intake & Output 09/30/18 09/30/18 10/01/18 06:59 18:59 06:59 Intake Total 580 280 Balance 580 280 Intake: IV 300 Sodium Chloride 0.9% 1, 300 000 ml @ 100 mls/hr IV . Q10H SUKHDEEP Rx#:[id number] Oral 280 280 Other: # Voids 2 - Labs CBC & Chem 7: 09/28/18 07:49 09/28/18 07:49 Labs: Abnormal Lab Results - Last 24 Hours (Table) 09/30/18 09/30/18 09/30/18 Range/Units 07:01 12:00 17:04 POC Glucose (mg/dL) 117 H 127 H 165 H (75-99) mg/dL 09/30/18 Range/Units 19:45 POC Glucose (mg/dL) 134 H (75-99) mg/dL Assessment and Plan Assessment: Right tibial intramedullary nailing and ORIF of ankle/malleolus fracture. Status post mechanical fall Right comminuted displaced distal diaphysis right tibia fracture, comminuted minimally displaced lateral malleolus fracture, nondisplaced transverse fracture medial malleolus. Diabetes type 2 [id number] Hypertension Hyperlipidemia DVT prophylaxis Plan: Patient will be continued on current pain medications and a bowel regimen. Incentive spirometry and DVT prophylaxis. Patient be continued on current blood pressure medications including Norvasc and lisinopril. Insulin sliding scale and diabetic medications. We will continue to follow closely. Further recommendations based on the clinical course. Time with Patient: Greater than 30
[2018-10-01] MEDS: SODIUM CHLORIDE 0.9% 1,000 ML IV SCH ×2 (02:01→16:45)
[2018-10-01] MEDS: HYDROcodone/APAP 5-325MG 1 EACH TAB PO PRN ×4 (03:39→22:09)
[2018-10-01 07:30] LABS: Glucose,Whole Blood 159 mg/dL (75-99)
--- NOTE | 2018-10-01 07:47 | P.PN ---
Subjective Progress Note Date: 10/01/18 This is a 57-year-old female who is status post intramedullary rodding of the right tibia along with ORIF of the lateral malleolus and posterior malleolus. This is postoperative day #4. Patient states that her pain is well-controlled and she has been able to stay nonweightbearing using her walker. Patient denies any new complaints today. Patient denies any fever/chills, numbness, weakness, tingling, abdominal pain, shortness of breath or chest pain. Objective - Vital Signs Vital signs: Vital Signs Temp 98.4 F 10/01/18 01:25 Pulse 70 10/01/18 01:25 Resp 16 10/01/18 01:25 BP 127/71 10/01/18 01:25 Pulse Ox 99 10/01/18 01:25 Intake & Output 09/30/18 10/01/18 10/01/18 18:59 06:59 18:59 Intake Total 280 Balance 280 Intake: Oral 280 Other: # Voids 2 - Exam Vital signs are stable. Patient is in no acute distress and is alert and oriented 3. Splint is clean, dry and intact. Patient has good range of motion of the toes of the right foot. Sensation intact. Neurovascular status and circulatory status are intact. - Labs CBC & Chem 7: 09/28/18 07:49 09/28/18 07:49 Labs: Abnormal Lab Results - Last 24 Hours (Table) 09/30/18 09/30/18 09/30/18 Range/Units 12:00 17:04 19:45 POC Glucose (mg/dL) 127 H 165 H 134 H (75-99) mg/dL 10/01/18 Range/Units 07:16 POC Glucose (mg/dL) 159 H (75-99) mg/dL Assessment and Plan Plan: 1. Patient is to be strictly nonweightbearing to the right lower extremity with walker. 2. Maintain splint to right lower extremity. Keep clean and dry. 3. Continue pain control and routine postoperative care. 4. Lovenox for DVT prophylaxis. 5. Appreciate input from medicine. 6. Likely discharge to rehab tomorrow.
[2018-10-01] MEDS: METOPROLOL SUCCINATE (ER) 25 MG TAB.ER.24H PO SCH (09:34)
[2018-10-01] MEDS: ATORVASTATIN 10 MG TAB PO SCH (09:34)
[2018-10-01] MEDS: amLODIPine 10 MG TAB PO SCH (09:34)
[2018-10-01] MEDS: GLIMEPIRIDE 2 MG TAB PO SCH ×2 (09:34→18:20)
[2018-10-01] MEDS: metFORMIN 500 MG TAB PO SCH ×2 (09:34→18:21)
[2018-10-01] MEDS: LISINOPRIL-HCTZ 20-25 MG 1 EACH TAB PO SCH (09:34)
[2018-10-01] MEDS: ENOXAPARIN 40 MG/0.4 ML SYRINGE SQ SCH (09:35)
[2018-10-01] MEDS: PANTOPRAZOLE 40 MG/10 ML VIAL IV SCH (09:38)
[2018-10-01 12:00] LABS: Glucose,Whole Blood 136 mg/dL (75-99)
[2018-10-01 17:23] LABS: Glucose,Whole Blood 194 mg/dL (75-99)
[2018-10-01 19:52] LABS: Glucose,Whole Blood 161 mg/dL (75-99)
[2018-10-01] MEDS: SENNOSIDES-DOCUSATE SODIUM 1 EACH TAB PO PRN (20:27)
--- NOTE | 2018-10-01 23:29 | P.PN ---
Subjective Progress Note Date: 10/01/18 Principal diagnosis: Status post mechanical fall and right tibial fracture Right comminuted displaced distal diaphysis right tibia fracture, comminuted minimally displaced lateral malleolus fracture, nondisplaced transverse fracture medial malleolus. Patient is a 57-year-old female with known history of hypertension, diabetes type 2 [id number], hyperlipidemia presented to ER with complaints of right leg pain status post fall. 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 Patient has been having right lower leg pain and deformity and unable to ambulate. Patient was brought to ER for evaluation. X-ray of the right tibia-fibula there is improvement in the alignment of comminuted fracture distal tibial diaphysis after reduction and casting. CT of the right lower extremities showed comminuted displaced fracture distal diaphoresis right tibia. Comminuted minimally displaced lateral malleolus fracture and nondisplaced transverse fracture medial malleolus all are pretty demonstrated. Chest x-ray showed no acute cardio pulmonary process EKG showed normal sinus rhythm Orthopedic surgery is planning for OR this afternoon. CBC 166. All other laboratory data reviewed. 09/27/2018 Patient underwent intramedullary nailing of right DVT or fracture and ORIF of right ankle malleolus fracture. Tolerated the procedure very well. Currently patient is controlled. No complaints of chest pain or shortness of breath. Slightly elevated blood pressure postoperatively. Currently controlled. Kalyan back does have some nausea. No vomiting. No abdominal pain or diarrhea. No fever no chills.. Procedure(s) Performed: 1. Operative fixation of right distal third tibia fracture with intramedullary nail 2. Open reduction and internal fixation right comminuted lateral malleolus fracture with bridge plate 3. Open reduction and internal fixation of right posterior malleolus 4. Nonoperative management of right medial malleolus fracture 5. Application of short-leg splint by physician, right ankle. 09/30/2018 Patient denied any complaints of right leg pain. Patient did have bowel movement yesterday. No nausea vomiting or abdominal pain. No chest pain. Blood pressure and blood sugar is currently controlled. No other acute overnight issues. 10/01/2018 Patient denied any new complaints today. No nausea vomiting or abdominal pain. No chest pain or short of breath. No headache or dizziness or lightheadedness. Patient is awaiting for placement to rehab. Current medications reviewed. Objective - Vital Signs Vital signs: Vital Signs Temp 98.8 F 10/01/18 14:36 Pulse 79 10/01/18 14:36 Resp 15 10/01/18 14:36 BP 126/67 10/01/18 14:36 Pulse Ox 95 10/01/18 14:36 Intake & Output 10/01/18 10/01/18 10/02/18 06:59 18:59 06:59 Intake Total 280 600 Balance 280 600 Intake: Oral 280 600 Other: Voiding Method Bedside Commode - Exam PHYSICAL EXAMINATION: Patient is lying in the bed comfortably, no acute distress, awake alert and oriented.. HEENT: Normocephalic. Neck is supple. Pupils reactive. Nostrils clear. Oral cavity is moist. Ears reveal no drainage. Neck reveals no JVD, carotid bruits, or thyromegaly. CHEST EXAMINATION: Trachea is central. Symmetrical expansion. Lung escudero clear to auscultation and percussion. CARDIAC: Normal S1, S2 with no gallops. No murmurs ABDOMEN: Soft. Bowel sounds normal. No organomegaly. No abdominal bruits. Extremities: reveal no edema. No clubbing or cyanosis Neurologically awake, alert, oriented x3 with well-coordinated movements. No focal deficits noted Skin: No rash or skin lesions. Psychiatric: Coperative. Nonsuicidal Musculoskeletal: Right lower extremitie cast in place. Minimal swelling of dose.. - Labs CBC & Chem 7: 09/28/18 07:49 09/28/18 07:49 Labs: Abnormal Lab Results - Last 24 Hours (Table) 09/30/18 10/01/18 10/01/18 Range/Units 19:45 07:16 11:48 POC Glucose (mg/dL) 134 H 159 H 136 H (75-99) mg/dL 10/01/18 Range/Units 17:11 POC Glucose (mg/dL) 194 H (75-99) mg/dL Assessment and Plan Assessment: Right tibial intramedullary nailing and ORIF of ankle/malleolus fracture. Status post mechanical fall Right comminuted displaced distal diaphysis right tibia fracture, comminuted minimally displaced lateral malleolus fracture, nondisplaced transverse fracture medial malleolus. Diabetes type 2 [id number] Hypertension Hyperlipidemia DVT prophylaxis Plan: Patient will be continued on current pain medications and a bowel regimen. Incentive spirometry and DVT prophylaxis. Patient be continued on current blood pressure medications including Norvasc and lisinopril. Insulin sliding scale and diabetic medications. We will continue to follow closely. Further recommendations based on the clinical course.
--- NOTE | 2018-10-01 23:30 | P.PN ---
Subjective Progress Note Date: 09/28/18 Principal diagnosis: Status post mechanical fall and right tibial fracture Right comminuted displaced distal diaphysis right tibia fracture, comminuted minimally displaced lateral malleolus fracture, nondisplaced transverse fracture medial malleolus. Patient is a 57-year-old female with known history of hypertension, diabetes type 2 [id number], hyperlipidemia presented to ER with complaints of right leg pain status post fall. 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 Patient has been having right lower leg pain and deformity and unable to ambulate. Patient was brought to ER for evaluation. X-ray of the right tibia-fibula there is improvement in the alignment of comminuted fracture distal tibial diaphysis after reduction and casting. CT of the right lower extremities showed comminuted displaced fracture distal diaphoresis right tibia. Comminuted minimally displaced lateral malleolus fracture and nondisplaced transverse fracture medial malleolus all are pretty demonstrated. Chest x-ray showed no acute cardio pulmonary process EKG showed normal sinus rhythm Orthopedic surgery is planning for OR this afternoon. CBC 166. All other laboratory data reviewed. 09/27/2018 Patient underwent intramedullary nailing of right DVT or fracture and ORIF of right ankle malleolus fracture. Tolerated the procedure very well. Currently patient is controlled. No complaints of chest pain or shortness of breath. Slightly elevated blood pressure postoperatively. Currently controlled. Pa wong does have some nausea. No vomiting. No abdominal pain or diarrhea. No fever no chills.. Procedure(s) Performed: 1. Operative fixation of right distal third tibia fracture with intramedullary nail 2. Open reduction and internal fixation right comminuted lateral malleolus fracture with bridge plate 3. Open reduction and internal fixation of right posterior malleolus 4. Nonoperative management of right medial malleolus fracture 5. Application of short-leg splint by physician, right ankle. 09 28 2018 Patient is complaining of some pain in the right leg otherwise control with medications. Patient has been following with physical therapy. Patient is being continued on nonweight bearing. Next and no compressive chest pain or short of breath. No nausea vomiting. Hemoglobin is fairly stable Current medications reviewed. Objective - Vital Signs Vital signs: Vital Signs Temp 99.2 F 09/28/18 19:50 Pulse 83 09/28/18 19:50 Resp 16 09/28/18 20:17 BP 133/66 09/28/18 19:50 Pulse Ox 97 09/28/18 19:50 Intake & Output 09/28/18 09/28/18 09/29/18 06:59 18:59 06:59 Intake Total 1780 1300 Balance 1780 1300 Intake: IV 1000 700 Sodium Chloride 0.9% 1, 1000 700 000 ml @ 100 mls/hr IV . Q10H SUKHDEEP Rx#:[id number] Oral 780 600 Other: Voiding Method Bedpan Bedside Commode # Voids 2 - Exam PHYSICAL EXAMINATION: Patient is lying in the bed comfortably, no acute distress, awake alert and oriented.. HEENT: Normocephalic. Neck is supple. Pupils reactive. Nostrils clear. Oral cavity is moist. Ears reveal no drainage. Neck reveals no JVD, carotid bruits, or thyromegaly. CHEST EXAMINATION: Trachea is central. Symmetrical expansion. Lung escudero clear to auscultation and percussion. CARDIAC: Normal S1, S2 with no gallops. No murmurs ABDOMEN: Soft. Bowel sounds normal. No organomegaly. No abdominal bruits. Extremities: reveal no edema. No clubbing or cyanosis Neurologically awake, alert, oriented x3 with well-coordinated movements. No focal deficits noted Skin: No rash or skin lesions. Psychiatric: Coperative. Nonsuicidal Musculoskeletal: Right lower extremitie cast in place. Minimal swelling of dose.. - Labs CBC & Chem 7: 09/28/18 07:49 09/28/18 07:49 Labs: Abnormal Lab Results - Last 24 Hours (Table) 09/27/18 09/28/18 09/28/18 Range/Units 20:50 07: 07:49 RBC (3.80-5.40) m/uL Hgb (11.4-16.0) gm/dL Hct (34.0-46.0) % Plt Count (150-450) k/uL Lymphocytes # (1.0-4.8) k/uL Chloride (98-107) mmol/L Glucose (74-99) mg/dL POC Glucose (mg/dL) 144 H 157 H (75-99) mg/dL Calcium (8.4-10.2) mg/dL Vitamin D 25-Hydroxy 20.9 L (30.0-100.0) ng/mL 09/28/18 09/28/18 09/28/18 Range/Units 07:49 07:49 11:49 RBC 3.28 L (3.80-5.40) m/uL Hgb 10.1 L (11.4-16.0) gm/dL Hct 29.4 L (34.0-46.0) % Plt Count 148 L (150-450) k/uL Lymphocytes # 0.6 L (1.0-4.8) k/uL Chloride 109 H (98-107) mmol/L Glucose 142 H (74-99) mg/dL POC Glucose (mg/dL) 165 H (75-99) mg/dL Calcium 8.2 L (8.4-10.2) mg/dL Vitamin D 25-Hydroxy (30.0-100.0) ng/mL 09/28/18 09/28/18 Range/Units 16:27 20:08 RBC (3.80-5.40) m/uL Hgb (11.4-16.0) gm/dL Hct (34.0-46.0) % Plt Count (150-450) k/uL Lymphocytes # (1.0-4.8) k/uL Chloride (98-107) mmol/L Glucose (74-99) mg/dL POC Glucose (mg/dL) 190 H 167 H (75-99) mg/dL Calcium (8.4-10.2) mg/dL Vitamin D 25-Hydroxy (30.0-100.0) ng/mL Assessment and Plan Assessment: Right tibial intramedullary nailing and ORIF of ankle/malleolus fracture. Status post mechanical fall Right comminuted displaced distal diaphysis right tibia fracture, comminuted minimally displaced lateral malleolus fracture, nondisplaced transverse fracture medial malleolus. Diabetes type 2 [id number] Hypertension Hyperlipidemia DVT prophylaxis Plan: Patient will be continued on current pain medications and a bowel regimen. Inc entive spirometry and DVT prophylaxis. Patient be continued on current blood pressure medications including Norvasc and lisinopril. Insulin sliding scale and diabetic medications. We will continue t o follow closely. Further recommendations based on the clinical course. Time with Patient: Greater than 30
--- NOTE | 2018-10-01 23:31 | P.PN ---
Subjective Progress Note Date: 09/29/18 Principal diagnosis: Status post mechanical fall and right tibial fracture Right comminuted displaced distal diaphysis right tibia fracture, comminuted minimally displaced lateral malleolus fracture, nondisplaced transverse fracture medial malleolus. Patient is a 57-year-old female with known history of hypertension, diabetes type 2 [id number], hyperlipidemia presented to ER with complaints of right leg pain status post fall. 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 Patient has been having right lower leg pain and deformity and unable to ambulate. Patient was brought to ER for evaluation. X-ray of the right tibia-fibula there is improvement in the alignment of comminuted fracture distal tibial diaphysis after reduction and casting. CT of the right lower extremities showed comminuted displaced fracture distal diaphoresis right tibia. Comminuted minimally displaced lateral malleolus fracture and nondisplaced transverse fracture medial malleolus all are pretty demonstrated. Chest x-ray showed no acute cardio pulmonary process EKG showed normal sinus rhythm Orthopedic surgery is planning for OR this afternoon. CBC 166. All other laboratory data reviewed. 09/27/2018 Patient underwent intramedullary nailing of right DVT or fracture and ORIF of right ankle malleolus fracture. Tolerated the procedure very well. Currently patient is controlled. No complaints of chest pain or shortness of breath. Slightly elevated blood pressure postoperatively. Currently controlled. Pa wong does have some nausea. No vomiting. No abdominal pain or diarrhea. No fever no chills.. Procedure(s) Performed: 1. Operative fixation of right distal third tibia fracture with intramedullary nail 2. Open reduction and internal fixation right comminuted lateral malleolus fracture with bridge plate 3. Open reduction and internal fixation of right posterior malleolus 4. Nonoperative management of right medial malleolus fracture 5. Application of short-leg splint by physician, right ankle. 09 28 2018 Patient is complaining of some pain in the right leg otherwise control with medications. Patient has been following with physical therapy. Patient is being continued on nonweight bearing. Next and no compressive chest pain or short of breath. No nausea vomiting. Hemoglobin is fairly stable. 09/29/2018 Patient denied any compressive chest pain or shortness of breath. Part spreading in physical therapy. Patient did have a bowel movement. No nausea vomiting or abdominal pain. No fever no chills. Blood sugar and blood pressure is fairly controlled. Current medications reviewed. Objective - Vital Signs Vital signs: Vital Signs Temp 98.2 F 09/29/18 20:58 Pulse 95 09/29/18 20:58 Resp 16 09/29/18 20:58 BP 116/65 09/29/18 20:58 Pulse Ox 94 L 09/29/18 14:07 Intake & Output 09/29/18 09/29/18 09/30/18 06:59 18:59 06:59 Intake Total 350 800 300 Balance 350 800 300 Intake: IV 350 0 300 Sodium Chloride 0.9% 1, 350 0 300 000 ml @ 100 mls/hr IV . Q10H SUKHDEEP Rx#:[id number] Oral 800 Other: Voiding Method Bedside Commode Bedside Commode # Voids 3 - Exam PHYSICAL EXAMINATION: Patient is lying in the bed comfortably, no acute distress, awake alert and oriented.. HEENT: Normocephalic. Neck is supple. Pupils reactive. Nostrils clear. Oral cavity is moist. Ears reveal no drainage. Neck reveals no JVD, carotid bruits, or thyromegaly. CHEST EXAMINATION: Trachea is central. Symmetrical expansion. Lung escudero clear to auscultation and percussion. CARDIAC: Normal S1, S2 with no gallops. No murmurs ABDOMEN: Soft. Bowel sounds normal. No organomegaly. No abdominal bruits. Extremities: reveal no edema. No clubbing or cyanosis Neurologically awake, alert, oriented x3 with well-coordinated movements. No focal deficits noted Skin: No rash or skin lesions. Psychiatric: Coperative. Nonsuicidal Musculoskeletal: Right lower extremitie cast in place. Minimal swelling of dose.. - Labs CBC & Chem 7: 09/28/18 07:49 09/28/18 07:49 Labs: Abnormal Lab Results - Last 24 Hours (Table) 09/29/18 09/29/18 09/29/18 Range/Units 06:58 11:30 16:15 POC Glucose (mg/dL) 149 H 131 H 181 H (75-99) mg/dL 09/29/18 Range/Units 20:25 POC Glucose (mg/dL) 176 H (75-99) mg/dL Assessment and Plan Assessment: Right tibial intramedullary nailing and ORIF of ankle/malleolus fracture. Status post mechanical fall Right comminuted displaced distal diaphysis right tibia fracture, comminuted minimally displaced lateral malleolus fracture, nondisplaced transverse fracture medial malleolus. Diabetes type 2 [id number] Hypertension Hyperlipidemia DVT prophylaxis Plan: Patient will be continued on current pain medications and a bowel regimen. Incentive spirometry and DVT prophylaxis. Patient be continued on current blood pressure medications including Norvasc and lisinopril. Insulin sliding scale and diabetic medications. We will continue to follow closely. Further recommendations based on the clinical course. Time with Patient: Greater than 30
[2018-10-02] MEDS: SODIUM CHLORIDE 0.9% 1,000 ML IV SCH ×3 (03:07→20:40)
[2018-10-02 07:11] LABS: Glucose,Whole Blood 130 mg/dL (75-99)
[2018-10-02] MEDS: HYDROcodone/APAP 5-325MG 1 EACH TAB PO PRN ×4 (07:25→19:29)
[2018-10-02] MEDS: metFORMIN 500 MG TAB PO SCH ×2 (07:27→17:53)
[2018-10-02] MEDS: GLIMEPIRIDE 2 MG TAB PO SCH ×2 (07:27→17:54)
--- NOTE | 2018-10-02 07:55 | P.DS ---
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 Patient was initially seen in the [facility] ED. Patient was admitted under the care of Dr. Hand, and cleared for surgery. She was initially brought to the operating room on 09/26/18, but unfortunately the reamer set that was needed for surgery was incomplete and the surgery had to be ca nceled. After a long discussion with the patient and the family, the patient decided to stay at our facility and undergo surgery next day. Patient underwent an operative fixation of the right distal third right tibia fracture with an intramedullary nail, and ORIF of right comminuted lateral malleolus fracture with a bridge plate, an open reduction and internal fixation of the right posterior malleolus, and nonoperative management of the right medial malleolus fracture on 09/27/[address] Hand. The procedure is performed without complication or sequelae. The patient is doing well postoperatively. Vital signs are stable on postop day #5. Patient's discharge order was originally placed on 09/29/18, although discharge was post-poned until today due to a pending prior authorization for rehab placement. The patient is examined bedside this morning. She states her pain is currently well-controlled. She states she has been remaining nonweightbearing on the right lower extremity, she continued to work with physical therapy over the weekend she states she believes it is going well. Patient states he is tolerating her diet well. Patient states she has had at least 3 bowel movements since surgery. Patient denies chest pain, shortness of breath, nausea, vomiting, fevers, or chills. Patient has no new complaints today. On examination, the patient is sitting up in the chair in no acute distress. Patient is alert and orientated x3. On inspection of the right lower extremity, there is a bulky Hawkins splint in place. Splint is clean, dry, intact. There is no bleeding or drainage through the splint. Patient is able to wiggle right toes without issue. The toes are warm and well-perfused with brisk capillary refill. Sensation is intact to light touch of the dorsal and plantar foot, as well as first dorsal webspace. The left calf is soft and non-tender to palpation. The patient is discharged to rehab today, pending medical clearance today. Please refer to the [facility] rec for accurate list of medications. Patient Condition at Discharge: Fair Plan - Discharge Summary New Discharge Prescriptions: New Aspirin 325 mg PO DAILY #14 tab Docusate [Colace] 100 mg PO BID #60 capsule Hydrocodone/Acetaminophen [Tyler 5-325] 1 tab PO Q6HR PRN #40 tab PRN Reason: Pain Cholecalciferol [Vitamin D3] 2,000 unit PO DAILY #30 tablet Calcium Carbonate 500 mg PO TID #90 tablet No Action Metoprolol Succinate (ER) [Toprol Xl] 25 mg PO DAILY Lisinopril-Hctz 20-25 mg [Zestoretic 20-25] 1 tab PO DAILY Glimepiride [Amaryl] 2 mg PO AC-BID Atorvastatin Calcium [Lipitor] 10 mg PO DAILY metFORMIN HCL [metFORMIN HCL ER] 750 mg PO AC-BID Discharge Medication List Atorvastatin Calcium [Lipitor] 10 mg PO DAILY 09/25/18 [History] Glimepiride [Amaryl] 2 mg PO AC-BID 09/25/18 [History] Lisinopril-Hctz 20-25 mg [Zestoretic 20-25] 1 tab PO DAILY 09/25/18 [History] Metoprolol Succinate (ER) [Toprol Xl] 25 mg PO DAILY 09/25/18 [History] metFORMIN HCL [metFORMIN HCL ER] 750 mg PO AC-BID 09/25/18 [History] Aspirin 325 mg PO DAILY #14 tab 09/29/18 [Rx] Calcium Carbonate 500 mg PO TID #90 tablet 09/29/18 [Rx] Cholecalciferol [Vitamin D3] 2,000 unit PO DAILY #30 tablet 09/29/18 [Rx] Docusate [Colace] 100 mg PO BID #60 capsule 09/29/18 [Rx] Hydrocodone/Acetaminophen [Tyler 5-325] 1 tab PO Q6HR PRN #40 tab 09/29/18 [Rx] Follow up Appointment(s)/Referral(s): Shazia Souza MD [Primary Care Provider] - 1-2 days Russell Hand MD [Medical Doctor] - 10/13/18 10:15 am Activity/Diet/Wound Care/Special Instructions: -Strict non-weight bearing on your operative leg. Do not remove your splint; Keep splint clean, dry, and intact -Use crutches, knee scooter, or a walker to ambulate after surgery. -Elevate and ice operative leg to help reduce swelling and control pain. -Take pain medications as prescribed. Take Colace as a stool softener. Take aspirin as prescribed for blood clot prevention. - Vitamin D level resulted at 20.9. The patient was given a prescription for vitamin D3 2000 units daily, and calcium carbonate 500 mg 3 times a day. -Follow-up appointment with Dr. Hand in the office in 2 weeks. -Call the office with any questions or concerns, Discharge Disposition: TRANSFER TO SNF/ECF
[2018-10-02 09:46] VITALS: BMI 30.4
[2018-10-02] MEDS: amLODIPine 10 MG TAB PO SCH (11:03)
[2018-10-02] MEDS: METOPROLOL SUCCINATE (ER) 25 MG TAB.ER.24H PO SCH (11:03)
[2018-10-02] MEDS: LISINOPRIL-HCTZ 20-25 MG 1 EACH TAB PO SCH (11:03)
[2018-10-02] MEDS: ATORVASTATIN 10 MG TAB PO SCH (11:03)
[2018-10-02] MEDS: PANTOPRAZOLE 40 MG/10 ML VIAL IV SCH (11:03)
[2018-10-02] MEDS: ENOXAPARIN 40 MG/0.4 ML SYRINGE SQ SCH (11:03)
[2018-10-02 12:36] LABS: Glucose,Whole Blood 150 mg/dL (75-99)
[2018-10-02 17:28] LABS: Glucose,Whole Blood 132 mg/dL (75-99)
[2018-10-02 20:22] LABS: Glucose,Whole Blood 150 mg/dL (75-99)
[2018-10-02] MEDS: SENNOSIDES-DOCUSATE SODIUM 1 EACH TAB PO PRN (21:23)
[2018-10-03] MEDS: HYDROcodone/APAP 5-325MG 1 EACH TAB PO PRN ×2 (01:09→09:46)
[2018-10-03 07:20] LABS: Glucose,Whole Blood 168 mg/dL (75-99)
[2018-10-03 07:44] VITALS: BP 126/60; PULSE 76; RESP 14; TEMP 97.9
[2018-10-03] MEDS ORDERED: PANTOPRAZOLE 40 MG TABLET PO SCH (09:00)
[2018-10-03] MEDS: ATORVASTATIN 10 MG TAB PO SCH (09:38)
[2018-10-03] MEDS: ENOXAPARIN 40 MG/0.4 ML SYRINGE SQ SCH (09:38)
[2018-10-03] MEDS: metFORMIN 500 MG TAB PO SCH (09:38)
[2018-10-03] MEDS: LISINOPRIL-HCTZ 20-25 MG 1 EACH TAB PO SCH (09:39)
[2018-10-03] MEDS: amLODIPine 10 MG TAB PO SCH (09:39)
[2018-10-03] MEDS: GLIMEPIRIDE 2 MG TAB PO SCH (09:39)
[2018-10-03] MEDS: METOPROLOL SUCCINATE (ER) 25 MG TAB.ER.24H PO SCH (09:39)
[2018-10-03] MEDS: SODIUM CHLORIDE 0.9% 1,000 ML IV SCH (11:10)
== END 2018-10-03 13:10 | DRG 494 ==
LOC: EC 15:37 → 6PED 19:52 → 4SSUR 09-26 20:04
PROVIDERS: ADMIT Orthopaedic Surgery; ATTEND Orthopaedic Surgery
PROC: 0QJY3ZZ Inspection of Lower Bone, Percutaneous Approach (ICD-10-PCS; 2018-09-26)
PROC: 0QSG04Z Reposition Right Tibia with Internal Fixation Device, Open Approach (ICD-10-PCS; 2018-09-27)
PROC: 0QSJXZZ Reposition Right Fibula, External Approach (ICD-10-PCS; 2018-09-27)
PROC: 0QSGXZZ Reposition Right Tibia, External Approach (ICD-10-PCS; 2018-09-27)
PROC: 0QHG36Z Insertion of Intramedullary Internal Fixation Device into Right Tibia, Percutaneous Approach (ICD-10-PCS; principal; 2018-09-27 08:30)
PROC: 0QSJ04Z Reposition Right Fibula with Internal Fixation Device, Open Approach (ICD-10-PCS; 2018-09-27 08:30)
DX: S82.301A Unspecified fracture of lower end of right tibia, initial encounter for closed fracture (principal); S82.831A Other fracture of upper and lower end of right fibula, initial encounter for closed fracture; S82.63XA Displaced fracture of lateral malleolus of unspecified fibula, initial encounter for closed fracture; S82.54XA Nondisplaced fracture of medial malleolus of right tibia, initial encounter for closed fracture; E11.9 Type 2 diabetes mellitus without complications; I10 Essential (primary) hypertension; E78.5 Hyperlipidemia, unspecified; Z53.8 Procedure and treatment not carried out for other reasons; Z79.84 Long term (current) use of oral hypoglycemic drugs; Z79.899 Other long term (current) drug therapy; Z87.891 Personal history of nicotine dependence; W01.198A Fall on same level from slipping, tripping and stumbling with subsequent striking against other object, initial encounter; Y93.01 Activity, walking, marching and hiking; Y92.59 Other trade areas as the place of occurrence of the external cause; Y99.0 Civilian activity done for income or pay; Z83.3 Family history of diabetes mellitus; Z82.49 Family history of ischemic heart disease and other diseases of the circulatory system
CPT/HCPCS: 27752; 27810; 36415; 71045; 80048; 82306; 85025; 85610; 93005; 96374; 96375; 96376; 99285